=== PATIENT | female | born 1990 | race Caucasian/White ===

== ENCOUNTER 2017-10-31 08:44 | Emergency (ER) | payer OTHER ==
--- NOTE | 2017-10-31 09:29 | EDM.PDOC ---
ED HPI GENERAL MEDICAL PROBLEM - General Chief Complaint: Lower Extremity Injury/Pain Stated Complaint: L FOOT INJURY Time Seen by Provider: 10/31/17 09:23 - History of Present Illness INITIAL COMMENTS - FREE TEXT/NARRATIVE: 27-year-old female presents to the emergency room with left foot pain. Earlier this morning the patient slipped on some ice and now has pain on the outside and top of her foot. She denies any lower leg pain and no specific ankle discomfort. The patient was walking over some snow-covered ice and did not realize it was there. This was apparently on the neighbors sidewalk. Patient denies any other injuries with this fall. Left Feet Pain Score (Numeric/FACES): 3 - Related Data Allergies Allergy/AdvReac Type Severity Reaction Status Date / Time cephalexin [From Keflex] Allergy Hives Verified 10/31/17 09:04 Home Meds: Home Meds . [No Known Home Meds] 10/31/17 [History] Past Medical History - Past Health History Medical/Surgical History: Denies Medical/Surgical History Social & Family History - Tobacco Use Smoking Status *Q: Never Smoker - Caffeine Use Caffeine Use: Reports: Soda - Recreational Drug Use Recreational Drug Use: No Review of Systems - Review of Systems Review Of Systems: See Below Constitutional: Reports: No Symptoms Respiratory: Reports: No Symptoms Cardiovascular: Reports: No Symptoms GI/Abdominal: Reports: No Symptoms ED EXAM, GENERAL - Physical Exam Exam: See Below Exam Limited By: No Limitations General Appearance: Alert, No Apparent Distress Respiratory/Chest: No Respiratory Distress, Lungs Clear, Normal Breath Sounds Cardiovascular: Regular Rate, Rhythm, No Edema, No Murmur Extremities: Normal Inspection, No Pedal Edema, Other (Chest palpation discomfort on the lateral aspect of the foot on the left really no ecchymosis or deformity seen no significant swelling seen neurovascular status of the foot and digits is normal. Palpation of the ankle does not elicit any discomfort palpation of the calf does not elicit any discomfort). No: Non-Tender Neurological: Alert, Normal Cognition Course - Vital Signs Last Recorded V/S: Last Vital Signs Temp 36.5 C 10/31/17 09:07 Pulse 78 10/31/17 09:07 Resp 20 10/31/17 09:07 BP 158/86 H 10/31/17 09:07 Pulse Ox 100 10/31/17 09:07 - Orders/Labs/Meds Orders: Active Orders 24 hr Category Date Time Status Foot Comp Min 3V Lt [CR] Stat Exams 10/31/17 09:28 Taken - Re-Assessments/Exams Free Text/Narrative Re-Assessment/Exam: 10/31/17 10:08 X-ray of the left foot reveals no acute fracture dislocation with special attention paid to the base of the fifth metatarsal despite looking at that several times no fracture appeared. Patient was placed in a walking boot. Patient lives in [place] and will follow up with her regular provider at the end of this next week Departure - Departure Time of Disposition: 10:09 Disposition: Home, Self-Care 01 Clinical Impression: Injury of left foot - Discharge Information Instructions: Cast or Splint Care, [id number] Referrals: PCP,Not In Area [Primary Care Provider] - Forms: ED Department Discharge Additional Instructions: Return to this emergency room or the closest emergency room with any questions or problems. Follow-up with your regular healthcare provider at the end of this next week for recheck. Wear the splint at all times. He may take her foot out every few hours while awake and do gentle range of motion exercises like we discussed. Motrin or Aleve as needed for discomfort. For the next few days trying keep her foot elevated as much as possible and ice the tender areas every few hours as tolerated. - My Orders Last 24 Hours: My Active Orders 10/31/17 09:28 Foot Comp Min 3V Lt [CR] Stat - Assessment/Plan Last 24 Hours: My Active Orders 10/31/17 09:28 Foot Comp Min 3V Lt [CR] Stat
--- NOTE | 2017-10-31 11:00 | CR ---
Left foot: 4 views of the left foot were obtained. Comparison: No prior study. On one of the oblique views there appears to be a fracture within the navicular bone along the medial aspect. This is not confirmed on the other views which may be projectional. Plantar spur is seen. Soft tissue swelling is noted. Impression: 1. Questionable fracture involving the medial aspect of the navicular bone. As mentioned above, this is seen only on one view and cannot be confirmed on other views. Please correlate if patient has any corresponding symptoms. If any further questions remain, CT would rule in or rule out this possibility. 2. Other incidental findings. Diagnostic code #3
== END 2017-10-31 10:23 | disposition home or self-care (01) ==
LOC: JD.ED 08:44
DX: S99.922A Unspecified injury of left foot, initial encounter (principal); Z88.1 Allergy status to other antibiotic agents; W00.0XXA Fall on same level due to ice and snow, initial encounter
CPT/HCPCS: 73630-26-LT; 73630-LT; 99284